=== PATIENT | female | born 1945 | race Caucasian/White ===

== ENCOUNTER → 2018-04-28 | Outpatient (CLI) | payer MEDICARE, OTHER ==
[2018-04-28] MEDS: NITROGLYCERIN AEROSOL (4.9 GM) ×2 (14:45)
[2018-04-28] MEDS: IOHEXOL 100 ML (14:49)
[2018-04-28] MEDS: SOD CHLORIDE 0.9% 100 ML (14:49)
== END | disposition home or self-care (01) ==
LOC: C/S 12:26
DX: R06.02 Shortness of breath (principal)
CPT/HCPCS: 75574